=== PATIENT | female | born 1990 | race Caucasian/White ===

== ENCOUNTER 2018-10-09 18:48 | Emergency (ER) | payer SELFPAY, OTHER ==
[2018-10-09] MEDS ORDERED: METHYLPREDNISOLONE ACET 40 MG/ML 1 ML IM (22:00)
[2018-10-09] MEDS: KETOROLAC 60 MG INJ IM (22:04)
[2018-10-09] MEDS: DEXAMETHASONE 10 MG/ML 1 ML INJ IM (22:05)
[2018-10-09] MEDS: AMOXICILLIN/CLAV 875 MG TAB PO (22:10)
[2018-10-09] MEDS: METHYLPREDNISOLONE ACET 40 MG/ML 1 ML IM (22:11)
[2018-10-09] MEDS: HYDROCODONE/APAP (5/325) TAB PO (22:44)
[2018-10-09] MEDS ORDERED: HYDROCODONE/APAP (10/325) TAB PO (23:00)
== END 2018-10-09 22:50 | disposition home or self-care (01) ==
LOC: FTE 18:48
DX: K04.7 Periapical abscess without sinus (principal); I10 Essential (primary) hypertension; F17.210 Nicotine dependence, cigarettes, uncomplicated
CPT/HCPCS: 81025; 96372; 99284-25